=== PATIENT | male | born 1950 | race Caucasian/White ===

== ENCOUNTER 2016-07-11 12:59 | Emergency (ER) | payer MEDICARE ==
[~2016-07-11 12:59] MED LIST: BENAZEPRIL PO; ECOTRIN325 MG PO; MAXZIDE-25 MG T1 TAB; MAXZIDE-25 MG1 UDTAB; METOPROLOL TAR25 MG PO; MULTI-VITAMIN W1 TA1 PO; MULTI-VITAMIN1 TAB; NITROGLYCERIN0.4 MG SL; NORVASC; NORVASC10 MG PO; PLAVIX PO; TRIAMTERENE-HC1 EACH
[2016-07-11 13:02] LABS: URINE SOURCE CLEAN CATCH
[2016-07-11 13:09] LABS: URINE APPEARANCE CLOUDY; URINE BILIRUBIN NEG (NEG); URINE BLOOD TRACE (NEG); URINE COLOR DK YELLOW; URINE GLUCOSE NEG (NEG); URINE KETONE TRACE (NEG); URINE LEUKOCYTE ESTERASE 3+ (NEG); URINE NITRATE NEG (NEG); URINE PROTEIN TRACE (NEG); URINE SPECIFIC GRAVITY 1.022 (1.003-1.035)
[2016-07-11 13:13] LABS: CULTURE INDICATED? YES; U HYALINE CASTS AUWI 0-2 /[LPF]; URINE BACTERIA AUWI 1+ (NEGATIVE); URINE SQUAMOUS EPITHELIAL CELL NONE SEEN /[HPF]; UWBCS1 AUWI 200-300 (0-5)
== END 2016-07-11 14:10 | disposition home or self-care (01) ==
LOC: CED 12:59
PROVIDERS: Emergency Medicine
DX: N30.00 Acute cystitis without hematuria (principal)
CPT/HCPCS: 81003; 82947; 87086; 87088; 87186; 99282